=== PATIENT | male | born 1945 | race Two or more races ===

== ENCOUNTER 2024-01-08 12:26 | Emergency (ER) | payer OTHER ==
[~2024-01-08] VITALS: Ht 172.7 cm; Wt 88.0 kg
[2024-01-08] MEDS ORDERED: XARELTO20 MG PO (12:55)
[2024-01-08] MEDS ORDERED: AMLODIPINE BESYL5 MG PO (12:55)
[2024-01-08] MEDS ORDERED: METOPROLOL SUCC50 MG PO (12:55)
[2024-01-08] MEDS ORDERED: BENAZEPRIL HCL20 MG PO (12:55)
[2024-01-08] MEDS ORDERED: TETANUS & DIPHTHERIA TOX,ADULT 0.5 ML VIAL IM ONE (15:15)
[2024-01-08] MEDS ORDERED: AMOX-CLAV 875-1 EAC1 PO (15:30)
== END 2024-01-08 15:39 ==
LOC: ER 12:26
DX: S81.852A Open bite, left lower leg, initial encounter (principal); W54.0XXA Bitten by dog, initial encounter; I10 Essential (primary) hypertension